=== PATIENT | female | born 1950 | race Caucasian/White ===

== ENCOUNTER 2018-03-07 00:29 | Emergency (ER) | payer MEDICARE ==
--- NOTE | 2018-03-07 00:38 | ED Physician Documentation ---
General Adult - HISTORIAN Historian: patient - HPI Stated Complaint: finger lacerataion Chief Complaint: General Adult Onset: minutes Timing: still present Severity: mild Further Comments: yes (Pt is a 68 yo female with a small laceration to her L index finger. Pt was using a razor knife to scrape labels of some glassware she had bought when she cut herself. Though cut is small, pt is concerned because she is on coumadin and the bleeding did not stop easily. Pt thinks she punctured through to the bone with the razor.) - ROS CONST: no problems EYES/ENT: none CVS/RESP: none GI/: none MS/SKIN/LYMPH: other (small L finger laceration) - PAST HX Past History: other (DVT, PE, HTN) Allergies/Adverse Reactions: Allergies Allergy/AdvReac Type Severity Reaction Status Date / Time No Known Allergies Allergy Verified 03/07/18 01:09 Home Medications: Ambulatory Orders Medication Instructions Recorded Metoprolol Tartrate [Lopressor] 50 mg PO D 03/07/18 Warfarin Sodium [Coumadin] 10 mg PO D 03/07/18 - SOCIAL HX Smoking History: cigarettes - FAMILY HX Family History: No - REVIEWED ASSESSMENTS Nursing Assessment Reviewed: Yes Vitals Reviewed: Yes Progress - Progress Progress: Pt declined tetanus vaccine. Small laceration closed with steristrip and skin adhesive after wound cleansed with hibiclens and saline. Pt believed razor penetrated to bone. Rx Keflex (500 mg). Take one every 12 hours for 5 days. Wear finger splint for 3 or 4 days to prevent tension on the laceration. Dermabond skin glue will wear off in about 5 days. General Adult Physical Exam - PHYSICAL EXAM GENERAL APPEARANCE: no distress NECK: normal inspection, supple RESPIRATORY: no resp distress, chest non-tender, breath sounds normal CVS: reg rate & rhythm, heart sounds normal BACK: normal inspection SKIN: other (1 cm laceration L index finger, ventral, near PIP) EXTREMITIES: normal range of motion NEURO: oriented X3, motor nml, sensation nml Discharge Clincal Impression: small L index finger laceration Condition: Good Disposition: 01 HOME, SELF-CARE Decision to Admit: NO Decision Time: 01:15
[2018-03-07] MEDS ORDERED: CEPHALEXIN 250 MG CAPSULE PO ONE (00:48)
[2018-03-07 01:45] VITALS: BP 152/48
== END 2018-03-07 01:16 | disposition home or self-care (01) ==
LOC: ED 00:29
DX: S61.211A Laceration without foreign body of left index finger without damage to nail, initial encounter (principal); W26.0XXA Contact with knife, initial encounter; Y93.89 Activity, other specified; Y92.9 Unspecified place or not applicable; Z79.01 Long term (current) use of anticoagulants
CPT/HCPCS: 12001; 99282; 99283